=== PATIENT | male | born 1980 ===

== ENCOUNTER 2017-04-21 13:47 | Emergency (ER) | payer SELFPAY ==
[~2017-04-21] VITALS: Ht 172.7 cm; Wt 74.0 kg
[2017-04-21 13:56] VITALS: Ht 172.7 cm; Wt 74.0 kg
[2017-04-21] MEDS ORDERED: KETOROLAC 60 MG INJ IM STA (14:44)
--- NOTE | 2017-04-21 15:22 | RADRPT ---
PROCEDURE: Lumbar spine series CLINICAL INDICATION: Back pain TECHNIQUE: Three views of the lumbar spine are available for review COMPARISON: None available FINDINGS: The normal lumbar lordosis is preserved. Alignment is intact. No acute fracture or dislocation is s een. Vertebral body heights are well maintained. Intervertebral disk heights are well maintained. Paraspinous soft tissues are grossly unremarkable. An apparent spinal stimulator is present, howeve r does not enter the spine by the mid thoracic and may represent a cerebral stimulator. IMPRESSION: 1. Unremarkable radiographic appearance of the lumbar spine RPTAT: KK .Davis Domingo MD, MD Date Time Electronically viewed and signed by .Davis Domingo MD, on 04/21/2017 15:22 .B/
[2017-04-21] MEDS ORDERED: HYDR-906 PO (15:33)
[2017-04-21] MEDS ORDERED: IBUP-1542 PO (15:33)
--- NOTE | 2017-04-21 15:38 | ERD ---
ER Documentation Chief Complaint Date/Time DATE: 04/21/17 TIME: 15:35 Chief Complaint Complains of lower back pain x 4 days HPI This 36-year-old male complains of low back pain for last 4 days. Started while bending over. Denies any fall or history of trauma. The pain radiates to his left lower extremity. Denies bowel or bladder incontinence, weakness, numbness. Patient has a history of unspecified peripheral neuropathy of uncertain cause with a spinal cord stimulator. ROS All systems reviewed and are negative except as per history of present illness. Medications Home Meds Active Scripts Ibuprofen* (Motrin*) 600 Mg Tab, 600 MG PO Q6, #20 TAB Prov:JAYSON OROZCO MD 04/21/17 Hydrocodone/Acetaminophen (Higden 5-325 Tablet) 1 Each Tablet, 1 TAB PO Q6H Y for PAIN, #15 TAB Prov:JAYSON OROZCO MD 04/21/17 Allergies Allergies: Coded Allergies: No Known Allergy (Unverified , 04/21/17) PMhx/Soc History of Surgery: Yes (hip) Anesthesia Reaction: No Hx Neurological Disorder: No Hx Respiratory Disorders: No Hx Cardiac Disorders: No Hx Psychiatric Problems: No Hx Miscellaneous Medical Probl: No Hx Alcohol Use: No Hx Substance Use: No Hx Tobacco Use: No Smoking Status: Never smoker Physical Exam Vitals Vital Signs Date Time Temp Pulse Resp B/P Pulse Ox O2 Delivery O2 Flow Rate FiO2 04/21/17 13:56 97.0 78 20 129/70 99 Physical Exam Const: [] Alert, [id number] Head: Atraumatic Eyes: Normal Conjunctiva ENT: Normal External Ears, Nose and Mouth. Neck: Full range of motion..~ No meningismus. Resp: Clear to auscultation bilaterally Cardio: Regular rate and rhythm, no murmurs Abd: Soft, non tender, non distended. Normal bowel sounds Skin: No petechiae or rashes Back: No midline or flank tenderness. Tenderness primarily in the left L4- L5 paraspinous muscles. No midline tenderness or deformities. Ext: No cyanosis, or edema Neur: Awake and alert. Ambulatory without deficits or weakness. Psych: Normal Mood and Affect Results 24 hrs Current Medications Medications (Trade) Dose Ordered Sig/Ely Route PRN Reason Start Time Stop Time Status Last Admin Dose Admin Ketorolac Tromethamine (Toradol) 60 mg ONCE STAT IM 04/21/17 14:44 04/21/17 14:45 DC 04/21/17 14:49 Procedures/MDM X-ray LS-Spine 3V Interpreted by me: Bones: [No fracture] Joints: [No dislocation] Foreign body: [None]. Impression-normal lumbar spine x-ray Patient is given Toradol 60 mg IM was noted to be ambulatory without assistive distress. Patient presents with signs and symptoms low back pain with signs of sciatica without evidence of cauda equina syndrome, signs or symptoms to suggest epidural abscess, genitourinary etiology. We treated with a short course of Higden, ibuprofen instructions for back exercises. He is advised to follow-up with primary doctor or for new or worsening symptoms. The patient was stable with no new complaints during the ER course. Clinically, there is no current evidence to suggest meningitis, sepsis, acute abdomen, pneumonia, acute coronary syndrome, pulmonary embolism, or any other emergent condition appearing to require further evaluation or hospitalization. The patient should certainly return for any new or worsening symptoms per the aftercare instructions. They should otherwise follow-up with her primary care doctor for reevaluation this week. Departure Diagnosis: Primary Impression: Back pain Back pain location: low back pain Chronicity: acute Back pain laterality: bilateral Sciatica presence: with sciatica Sciatica laterality: sciatica of right side Qualified Code: M54.41 - Acute bilateral low back pain with right- sided sciatica Condition: Stable Patient Instructions: Back Exercises, Lumbar, Back Pain W/ Sciatica Additional Instructions: X-ray normal today. Recommend exercises at home and possible physical therapy. Recheck for new or worsening symptoms or primary care doctor. JAYSON OROZCO MD Apr 21, 2017 15:38
== END 2017-04-21 15:54 | disposition home or self-care (01) ==
LOC: FTE 13:47
DX: M54.41 Lumbago with sciatica, right side (principal)
CPT/HCPCS: 72100; 96372; 99284; J1885